=== PATIENT | female | born 1970 | race African-American/Black ===

== ENCOUNTER 2017-03-01 10:47 | Emergency (ER) | payer MEDICAID ==
[~2017-03-01] VITALS: Ht 152.4 cm; Wt 48.8 kg
[~2017-03-01 10:47] MED LIST: ASPI-1159 PO; IBUP-2029 PO; LISI-186 PO; METO25TA6 PO
[2017-03-01 12:39] LABS: CLARITY URINE CLEAR (CLEAR); COLOR URINE YELLOW (YELLOW); GLUCOSE URINE NEGATIVE (NEGATIVE); KETONES URINE NEGATIVE (NEGATIVE); LEUKOCYTE ESTERASE URINE 3+ (NEGATIVE); NITRITE URINE NEGATIVE (NEGATIVE); OCCULT BLOOD URINE TRACE (NEGATIVE); PROTEIN URINE TRACE (NEGATIVE); SPECIFIC GRAVITY URINE 1.021 (1.005-1.030); UROBILINOGEN URINE 0.2 E.U./dL (0.2-1.0)
[2017-03-01 13:28] LABS: HCG SCREEN NEGATIVE
[2017-03-01 14:40] VITALS: BP 138/72
== END 2017-03-01 14:42 | disposition home or self-care (01) ==
LOC: ER 10:47
DX: J06.9 Acute upper respiratory infection, unspecified (principal); N39.0 Urinary tract infection, site not specified; J45.909 Unspecified asthma, uncomplicated; I10 Essential (primary) hypertension; G43.909 Migraine, unspecified, not intractable, without status migrainosus; Z90.49 Acquired absence of other specified parts of digestive tract; Z88.6 Allergy status to analgesic agent
CPT/HCPCS: 71010; 81001; 84703; 99285

== ENCOUNTER 2017-03-06 11:03 | Emergency (ER) | payer MEDICAID ==
[~2017-03-06] VITALS: Ht 160 cm; Wt 54.0 kg
[2017-03-06] MEDS ORDERED: AMOXICILLIN/POTASSIUM CLAVULANATE 875/125MG TAB PO ONE (16:30)
[2017-03-06] MEDS ORDERED: IBUPROFEN 600MG TABLET PO ONE (16:30)
[2017-03-06] MEDS ORDERED: CLONIDINE 0.1MG TABLET PO ONE (17:15)
[2017-03-06 17:50] VITALS: BP 138/102
== END 2017-03-06 18:22 | disposition home or self-care (01) ==
LOC: ER 12:36
DX: J32.9 Chronic sinusitis, unspecified (principal); R51 Headache; I10 Essential (primary) hypertension; J45.909 Unspecified asthma, uncomplicated; R11.2 Nausea with vomiting, unspecified; Z79.82 Long term (current) use of aspirin
CPT/HCPCS: 81025; 99284

== ENCOUNTER 2017-04-11 02:52 | Emergency (ER) | payer MEDICAID ==
[~2017-04-11] VITALS: Ht 152.4 cm; Wt 55.0 kg
[2017-04-11 06:02] VITALS: BP 140/56
[2017-04-11] MEDS ORDERED: TOBRAMYCIN 0.3% OPHTH DROPS 5ML OP ONE (06:30)
== END 2017-04-11 07:09 | disposition home or self-care (01) ==
LOC: ER 02:52
DX: H10.9 Unspecified conjunctivitis (principal); Z88.5 Allergy status to narcotic agent; Z88.6 Allergy status to analgesic agent; Z79.82 Long term (current) use of aspirin
CPT/HCPCS: 99283

== ENCOUNTER 2017-09-09 10:38 | Emergency (ER) | payer MEDICAID ==
[~2017-09-09] VITALS: Ht 172.7 cm; Wt 60.0 kg
[2017-09-09 11:16] LABS: BASOPHILS % 0.8 % (0.0-2.0); EOSINOPHILS % 3.4 % (0.0-5.0); HEMATOCRIT. 29.5 % (36.0-48.0); HEMOGLOBIN. 8.8 g/dL (12.0-16.0); LYMPHOCYTES % 32.3 % (20.0-50.0); MEAN CORPUSCULAR HEMOGLOBIN 19.1 pg (28.0-32.0); MEAN CORPUSCULAR VOLUME 64.3 fL (81.0-99.0); MEAN PLATELET VOLUME 8.1 fl (7.4-10.4); MONOCYTES % 8.1 % (2.0-8.0); NEUTROPHILS % 55.4 % (40.0-76.0); PLATELET 228 x1000/uL (130-400); RED BLOOD CELL COUNT 4.58 mill/uL (4.2-5.4); RED CELL DISTRIBUTION WIDTH 19.1 % (11.6-14.6)
[2017-09-09 11:21] LABS: CHLORIDE 106 mEq/L (98-107)
[2017-09-09 11:22] LABS: INR 1.1; PROTHROMBIN TIME 11.1 sec (9.4-11.6)
[2017-09-09 11:25] LABS: ETHANOL BLOOD < 10 mg/dL
[2017-09-09 11:43] LABS: PLATELET ESTIMATE NORMAL
[2017-09-09 11:44] LABS: HCG SCREEN NEGATIVE
[2017-09-09] MEDS ORDERED: ONDANSETRON HCL 4MG/2ML VIAL IV STA (12:12)
[2017-09-09] MEDS ORDERED: MAGNESIUM/ALUMINUM HYDROXIDE/SIMETHICONE 30ML UDC PO STA (12:12)
[2017-09-09] MEDS ORDERED: SODIUM CHLORIDE 0.9% 1,000 ML IV ONE (12:12)
[2017-09-09] MEDS ORDERED: FAMOTIDINE 20MG/2ML VIAL IV STA (12:12)
[2017-09-09] MEDS ORDERED: MORPHINE SULFATE 4 MG/ML CPJ (NOT FOR IM USE) IV STA (12:12)
[2017-09-09] MEDS ORDERED: DIPHENHYDRAMINE 50MG/ML VIAL IV ONE (12:15)
[2017-09-09 12:32] LABS: CLARITY URINE CLEAR (CLEAR); COLOR URINE YELLOW (YELLOW); KETONES URINE NEGATIVE (NEGATIVE); LEUKOCYTE ESTERASE URINE 2+ (NEGATIVE); NITRITE URINE NEGATIVE (NEGATIVE); OCCULT BLOOD URINE 3+ (NEGATIVE); PH URINE 5.5 (4.5-8.0); PROTEIN URINE TRACE (NEGATIVE)
[2017-09-09 12:52] LABS: *AMPHETAMINES SCREEN URINE NEGATIVE (NEGATIVE); *BARBITURATES SCREEN URINE NEGATIVE (NEGATIVE); *COCAINE SCREEN URINE NEGATIVE (NEGATIVE); CANNABINOID URINE SCREEN NEGATIVE (NEGATIVE); PHENCYCLIDINE URINE SCREEN NEGATIVE (NEGATIVE)
[2017-09-09 12:53] LABS: *BENZODIAZEPINES SCREEN URINE NEGATIVE (NEGATIVE); METHADONE URINE SCREEN NEGATIVE (NEGATIVE); OPIATES URINE SCREEN NEGATIVE (NEGATIVE)
[2017-09-09] MEDS ORDERED: IBUPROFEN 600MG TABLET PO ONE (15:15)
[2017-09-09] MEDS ORDERED: LEVOFLOXACIN 500MG TABLET PO ONE (15:15)
[2017-09-09 15:34] VITALS: BP 170/82
== END 2017-09-09 15:36 | disposition home or self-care (01) ==
LOC: ER 11:13
DX: N39.0 Urinary tract infection, site not specified (principal); D64.9 Anemia, unspecified; I10 Essential (primary) hypertension; F41.9 Anxiety disorder, unspecified; G43.909 Migraine, unspecified, not intractable, without status migrainosus; Z79.82 Long term (current) use of aspirin; Z88.5 Allergy status to narcotic agent; Z88.6 Allergy status to analgesic agent
CPT/HCPCS: 36415; 74176; 80053; 80305; 81003; 83690; 84703; 85025; 85610; 87086; 96361; 96374; 96375; 99285; G0482; J1200; J2270; J2405; J3490; J7030; Z7610

== ENCOUNTER 2018-06-10 04:27 | Inpatient (IN) | payer MEDICAID ==
[~2018-06-10] VITALS: Ht 152.6 cm; Wt 55.8 kg
[2018-06-10] MEDS ORDERED: SODIUM CHLORIDE 0.9% 1,000 ML IV ONE (07:47)
[2018-06-10] MEDS ORDERED: DICYCLOMINE HCL 10MG CAPSULE PO ONE (08:00)
[2018-06-10] MEDS ORDERED: ONDANSETRON HCL 4MG/2ML INJ IV ONE (08:00)
[2018-06-10] MEDS ORDERED: KETOROLAC 15MG/ML VIAL IV ONE (08:00)
[2018-06-10 09:18] LABS: CLARITY URINE CLEAR (CLEAR); COLOR URINE YELLOW (YELLOW); KETONES URINE NEGATIVE (NEGATIVE); LEUKOCYTE ESTERASE URINE 1+ (NEGATIVE); NITRITE URINE NEGATIVE (NEGATIVE); OCCULT BLOOD URINE NEGATIVE (NEGATIVE); PH URINE 6.5 (4.5-8.0); PROTEIN URINE NEGATIVE (NEGATIVE); SPECIFIC GRAVITY URINE 1.011 (1.005-1.030)
[2018-06-10 09:19] LABS: INR 1.1; PROTHROMBIN TIME 10.8 sec (9.1-11.1)
[2018-06-10 09:26] LABS: HEMATOCRIT. 25.4 % (36.0-48.0); MEAN CORPUSCULAR HEMOGLOBIN 15.8 pg (28.0-32.0); MEAN CORPUSCULAR VOLUME 57.2 fL (81.0-99.0); MEAN PLATELET VOLUME 8.5 fl (7.4-10.4); PLATELET 127 x1000/uL (130-400); RED BLOOD CELL COUNT 4.44 mill/uL (4.2-5.4); RED CELL DISTRIBUTION WIDTH 19.7 % (11.6-14.6)
[2018-06-10 09:46] LABS: CHLORIDE 106 mEq/L (98-107)
[2018-06-10 10:21] LABS: PLATELET ESTIMATE NORMAL
[2018-06-10] MEDS ORDERED: ENOXAPARIN 40MG/0.4ML SYR SUBCUT SCH (13:15)
[2018-06-10] MEDS ORDERED: DIPHENHYDRAMINE 50MG/ML VIAL IV PRN (13:15)
[2018-06-10] MEDS ORDERED: ONDANSETRON HCL 4MG/2ML INJ IV PRN ×2 (13:15→19:00)
[2018-06-10] MEDS ORDERED: IPRATROPIUM/ALBUTEROL 0.5-3(2.5)MG/3ML NEB INH PRN (13:15)
[2018-06-10 15:12] LABS: *AMPHETAMINES SCREEN URINE NEGATIVE (NEGATIVE); *BARBITURATES SCREEN URINE NEGATIVE (NEGATIVE); *BENZODIAZEPINES SCREEN URINE NEGATIVE (NEGATIVE); *COCAINE SCREEN URINE NEGATIVE (NEGATIVE)
[2018-06-10 15:13] LABS: CANNABINOID URINE SCREEN NEGATIVE (NEGATIVE); METHADONE URINE SCREEN NEGATIVE (NEGATIVE); OPIATES URINE SCREEN NEGATIVE (NEGATIVE); PHENCYCLIDINE URINE SCREEN NEGATIVE (NEGATIVE)
[2018-06-10 15:48] LABS: HEPATITIS B SURFACE ANTIGEN NEGATIVE
[2018-06-10 16:00] VITALS: BP 159/82
[2018-06-10 16:16] VITALS: BP 159/82
[2018-06-10 16:17] LABS: HEPATITIS A AB IGM NEGATIVE (NEGATIVE)
[2018-06-10 16:26] VITALS: BP 159/82
[2018-06-10 18:03] LABS: TOTAL IRON BINDING CAPACITY 392 ug/dL (250-450)
[2018-06-10 18:26] LABS: FOLIC ACID (FOLATE) SERUM >20 ng/mL ng/mL (>5.38)
[2018-06-10 18:37] LABS: VITAMIN B12 SERUM 1026 pg/mL (211-911)
[2018-06-10 18:51] LABS: FERRITIN 10 ng/mL (10-291)
[2018-06-10] MEDS ORDERED: MORPHINE SULFATE 4 MG/ML CPJ (NOT FOR IM USE) IV PRN (19:00)
[2018-06-10 20:00] VITALS: BP 139/77
[2018-06-10] MEDS ORDERED: MAGNESIUM 2 G PREMIX 50 ML IV NR (20:00)
[2018-06-10] MEDS: LISINOPRIL 5MG TABLET PO SCH (20:42)
[2018-06-11] VITALS (13 sets, daily range): BP systolic 109–165; BP diastolic 63–95
[2018-06-11 01:31] LABS: HEMATOCRIT 22.4 % (36.0-48.0)
[2018-06-11 01:36] LABS: HEMOGLOBIN 6.3 g/dL (12.0-16.0)
[2018-06-11 01:40] LABS: INR 1.2; PARTIAL THROMBOPLASTIN TIME 30.1 sec (23.4-31.0)
[2018-06-11 02:01] LABS: CREATINE KINASE 47 IU/L (26-192)
[2018-06-11] MEDS: SODIUM CHLORIDE 0.9% 1,000 ML IV SCH ×3 (03:25→20:50)
[2018-06-11 05:29] LABS: BASOPHILS % 0.6 % (0.0-2.0); EOSINOPHILS % 2.3 % (0.0-5.0); LYMPHOCYTES % 44.4 % (20.0-50.0); MEAN CORPUSCULAR VOLUME 57.5 fL (81.0-99.0); MONOCYTES % 7.3 % (2.0-8.0); NEUTROPHILS % 45.4 % (40.0-76.0); RED BLOOD CELL COUNT 3.56 mill/uL (4.2-5.4); RED CELL DISTRIBUTION WIDTH 19.4 % (11.6-14.6)
[2018-06-11 05:33] LABS: CHLORIDE 110 mEq/L (98-107)
[2018-06-11 05:36] LABS: HEMOGLOBIN. 5.7 g/dL (12.0-16.0)
[2018-06-11 05:37] LABS: HEMATOCRIT. 20.5 % (36.0-48.0)
[2018-06-11 05:40] LABS: LDL CHOLESTEROL 37 mg/dL (5-100)
[2018-06-11 05:42] LABS: HDL CHOLESTEROL 30 mg/dL (40-59)
[2018-06-11 06:57] LABS: PLATELET 94 x1000/uL (130-400)
[2018-06-11] MEDS: LISINOPRIL 5MG TABLET PO SCH (08:59)
[2018-06-11] MEDS: METOPROLOL TARTRATE 25MG TABLET PO SCH ×2 (09:00→16:37)
[2018-06-11] MEDS: ASCORBIC ACID 500 MG TABLET PO SCH ×2 (09:00→20:48)
[2018-06-11] MEDS: FERROUS SULFATE 325MG TABLET PO SCH ×3 (09:00→16:37)
[2018-06-11] MEDS: DOCUSATE SODIUM 100MG CAPSULE PO SCH (10:30)
[2018-06-11 13:23] LABS: HEMATOCRIT 26.6 % (36.0-48.0); HEMOGLOBIN 7.6 g/dL (12.0-16.0)
[2018-06-11 13:36] LABS: INR 1.1; PROTHROMBIN TIME 11.4 sec (9.1-11.1)
[2018-06-11 15:25] LABS: HEMATOCRIT 25.3 % (36.0-48.0); HEMOGLOBIN 7.3 g/dL (12.0-16.0)
[2018-06-11] MEDS: CLONIDINE 0.1MG TABLET PO PRN (18:14)
[2018-06-12] VITALS (9 sets, daily range): BP systolic 102–182; BP diastolic 59–108
[2018-06-12 07:01] LABS: HEMATOCRIT 25.7 % (36.0-48.0); HEMOGLOBIN 7.4 g/dL (12.0-16.0)
[2018-06-12] MEDS: CLONIDINE 0.1MG TABLET PO PRN (07:03)
[2018-06-12] MEDS: DOCUSATE SODIUM 100MG CAPSULE PO SCH (08:16)
[2018-06-12] MEDS: AMLODIPINE 5MG TABLET PO SCH (08:16)
[2018-06-12] MEDS: FERROUS SULFATE 325MG TABLET PO SCH ×3 (08:16→17:03)
[2018-06-12] MEDS: METOPROLOL TARTRATE 25MG TABLET PO SCH ×2 (08:16→17:04)
[2018-06-12] MEDS: LISINOPRIL 5MG TABLET PO SCH (08:17)
[2018-06-12] MEDS: ASCORBIC ACID 500 MG TABLET PO SCH ×2 (08:17→21:13)
[2018-06-12] MEDS ORDERED: AMLODIPINE 5MG TABLET PO SCH (08:30)
[2018-06-12] MEDS ORDERED: HYDRALAZINE 20MG/ML VIAL IV NR (08:30)
[2018-06-12] MEDS ORDERED: POTASSIUM CHLORIDE 20MEQ TABLET SR PO NR (11:45)
[2018-06-12 13:06] LABS: HIV SCREEN 4G Non Reactive (Non Reactive)
[2018-06-12 13:19] LABS: CHLORIDE 108 mEq/L (98-107)
[2018-06-12 13:24] LABS: PHOSPHORUS 2.7 mg/dL (2.5-4.9)
[2018-06-13] VITALS (11 sets, daily range): BP systolic 106–153; BP diastolic 63–96
[2018-06-13 06:59] LABS: CHLORIDE 106 mEq/L (98-107)
[2018-06-13 07:03] LABS: BASOPHILS % 0.5 % (0.0-2.0); EOSINOPHILS % 1.4 % (0.0-5.0); HEMATOCRIT. 24.4 % (36.0-48.0); HEMOGLOBIN. 7.2 g/dL (12.0-16.0); LYMPHOCYTES % 42.1 % (20.0-50.0); MEAN CORPUSCULAR VOLUME 61.3 fL (81.0-99.0); MEAN PLATELET VOLUME 8.5 fl (7.4-10.4); PLATELET 93 x1000/uL (130-400); RED BLOOD CELL COUNT 3.99 mill/uL (4.2-5.4)
[2018-06-13 07:07] LABS: PHOSPHORUS 3.7 mg/dL (2.5-4.9)
[2018-06-13] MEDS: FERROUS SULFATE 325MG TABLET PO SCH ×3 (08:14→16:25)
[2018-06-13] MEDS: DOCUSATE SODIUM 100MG CAPSULE PO SCH (08:16)
[2018-06-13] MEDS: LISINOPRIL 5MG TABLET PO SCH (08:19)
[2018-06-13] MEDS: AMLODIPINE 5MG TABLET PO SCH (08:20)
[2018-06-13] MEDS: ASCORBIC ACID 500 MG TABLET PO SCH (08:21)
[2018-06-13] MEDS: METOPROLOL TARTRATE 25MG TABLET PO SCH ×2 (08:21→16:25)
[2018-06-13] MEDS ORDERED: FERR325T23 PO (15:37)
[2018-06-13] MEDS ORDERED: AMLO5TAB88 PO (15:37)
[2018-06-13] MEDS ORDERED: PANT40TA4 MT (15:37)
[2018-06-13] MEDS ORDERED: DOCU-138 PO (15:37)
[2018-06-13] MEDS ORDERED: ASCO500T20 PO (15:37)
[2018-06-13] MEDS ORDERED: METO25TA6 PO (15:37)
== END 2018-06-13 18:49 | disposition home or self-care (01) | DRG 249 ==
LOC: ER 04:42 → 6EST 12:21 → ENRESERV 14:05 → 3WST 06-11 11:00
PROVIDERS: ADMIT Internal Medicine; ATTEND Internal Medicine
PROC: 30233N1 Transfusion of Nonautologous Red Blood Cells into Peripheral Vein, Percutaneous Approach (ICD-10-PCS; principal; 2018-06-11)
DX: A08.4 Viral intestinal infection, unspecified (principal); K75.9 Inflammatory liver disease, unspecified; D25.9 Leiomyoma of uterus, unspecified; D50.9 Iron deficiency anemia, unspecified; F32.9 Major depressive disorder, single episode, unspecified; G43.909 Migraine, unspecified, not intractable, without status migrainosus; F41.9 Anxiety disorder, unspecified; I10 Essential (primary) hypertension; R10.9 Unspecified abdominal pain; J45.909 Unspecified asthma, uncomplicated; N92.0 Excessive and frequent menstruation with regular cycle; Z79.82 Long term (current) use of aspirin; Z82.49 Family history of ischemic heart disease and other diseases of the circulatory system; Z90.49 Acquired absence of other specified parts of digestive tract; Z88.6 Allergy status to analgesic agent; Z88.8 Allergy status to other drugs, medicaments and biological substances; D50.0 Iron deficiency anemia secondary to blood loss (chronic)
CPT/HCPCS: 36415; 76705; 76830; 76856; 80048; 80061; 80076; 80305; 82248; 82550; 82607; 82728; 82746; 83540; 83550; 83735; 84100; 84443; 85014; 85018; 85044; 85049; 85384; 86038; 86705; 86709; 86803; 86850; 86900; 86920; 87340; 87389; 93970; 96374; 96375; 99285; J0360; J1200; J1885; J2270; J2405; J3475; J7030; J7040; P9016

== ENCOUNTER 2018-08-19 13:14 | Inpatient (IN) | payer MEDICAID ==
[~2018-08-19] VITALS: Ht 139.7 cm; Wt 49.7 kg
[~2018-08-19 13:14] MED LIST changes: +AMLO5TAB88 PO; +ASCO500T20 PO; -ASPI-1159 PO; +DOCU-138 PO; +FERR325T23 PO; -IBUP-2029 PO; +PANT40TA4 MT
[2018-08-19] MEDS ORDERED: SODIUM CHLORIDE 0.9% 1,000 ML IV ONE (18:48)
[2018-08-19] MEDS ORDERED: MORPHINE SULFATE 4 MG/ML CPJ (NOT FOR IM USE) IV STA (18:48)
[2018-08-19] MEDS ORDERED: ONDANSETRON HCL 4MG/2ML INJ IV STA (18:48)
[2018-08-19 19:54] LABS: BASOPHILS % 1.5 % (0.0-2.0); EOSINOPHILS % 1.8 % (0.0-5.0); HEMATOCRIT. 23.7 % (36.0-48.0); LYMPHOCYTES % 42.3 % (20.0-50.0); MEAN CORPUSCULAR HEMOGLOBIN 18.2 pg (28.0-32.0); MEAN PLATELET VOLUME 8.5 fl (7.4-10.4); MONOCYTES % 7.5 % (2.0-8.0); NEUTROPHILS % 46.9 % (40.0-76.0); PLATELET 104 x1000/uL (130-400); RED BLOOD CELL COUNT 3.77 mill/uL (4.2-5.4); RED CELL DISTRIBUTION WIDTH 20.9 % (11.6-14.6)
[2018-08-19 19:56] LABS: HEMOGLOBIN. 6.9 g/dL (12.0-16.0)
[2018-08-19 19:59] LABS: CHLORIDE 106 mEq/L (98-107); HCG SCREEN NEGATIVE
[2018-08-19 20:03] LABS: PARTIAL THROMBOPLASTIN TIME 28.7 sec (23.4-31.0); PROTHROMBIN TIME 10.4 sec (9.6-11.0)
[2018-08-19 20:04] LABS: ETHANOL BLOOD < 10 mg/dL
[2018-08-19 20:08] LABS: PLATELET ESTIMATE DECREASED
[2018-08-19 20:44] LABS: CLARITY URINE CLEAR (CLEAR); COLOR URINE YELLOW (YELLOW); KETONES URINE NEGATIVE (NEGATIVE); LEUKOCYTE ESTERASE URINE NEGATIVE (NEGATIVE); NITRITE URINE NEGATIVE (NEGATIVE); OCCULT BLOOD URINE 3+ (NEGATIVE); PH URINE 6.5 (4.5-8.0); PROTEIN URINE NEGATIVE (NEGATIVE); SPECIFIC GRAVITY URINE 1.019 (1.005-1.030); UROBILINOGEN URINE 0.2 E.U./dL (0.2-1.0)
[2018-08-19 20:52] LABS: *AMPHETAMINES SCREEN URINE NEGATIVE (NEGATIVE); *BARBITURATES SCREEN URINE NEGATIVE (NEGATIVE); *BENZODIAZEPINES SCREEN URINE NEGATIVE (NEGATIVE)
[2018-08-19 20:53] LABS: *COCAINE SCREEN URINE NEGATIVE (NEGATIVE); CANNABINOID URINE SCREEN NEGATIVE (NEGATIVE); METHADONE URINE SCREEN NEGATIVE (NEGATIVE); OPIATES URINE SCREEN NEGATIVE (NEGATIVE); PHENCYCLIDINE URINE SCREEN NEGATIVE (NEGATIVE)
[2018-08-19] MEDS ORDERED: HYDROMORPHONE HCL/PF 2MG/ML CPJ IV PRN (22:15)
[2018-08-19] MEDS ORDERED: GUAIFENESIN 200MG/10ML SUGAR FREE UDC PO PRN (22:15)
[2018-08-19] MEDS ORDERED: ONDANSETRON HCL 4MG/2ML INJ IV PRN (22:15)
[2018-08-19] MEDS ORDERED: MAGNESIUM/ALUMINUM HYDROXIDE/SIMETHICONE 30ML UDC PO PRN (22:15)
[2018-08-19] MEDS ORDERED: KETOROLAC 30MG/ML VIAL IV PRN (22:15)
[2018-08-19] MEDS ORDERED: ACETAMINOPHEN 325MG TABLET PO PRN (22:15)
[2018-08-19] MEDS ORDERED: CLONIDINE 0.1MG TABLET PO PRN (22:15)
[2018-08-19] MEDS ORDERED: DIPHENHYDRAMINE 50MG/ML VIAL IV PRN (22:15)
[2018-08-19] MEDS ORDERED: TEMAZEPAM 15MG CAPSULE PO PRN (22:15)
[2018-08-19] MEDS ORDERED: IPRATROPIUM/ALBUTEROL 0.5-3(2.5)MG/3ML NEB INH PRN (22:15)
[2018-08-19 23:40] VITALS: BP 141/78
[2018-08-20] VITALS (9 sets, daily range): BP systolic 95–147; BP diastolic 53–83
[2018-08-20] MEDS: SODIUM CHLORIDE 0.9% 1,000 ML IV SCH ×2 (06:02→22:37)
[2018-08-20 07:15] LABS: HEMATOCRIT 21.8 % (36.0-48.0); MEAN CORPUSCULAR HEMOGLOBIN 18.2 pg (28.0-32.0); MEAN CORPUSCULAR VOLUME 62.7 fL (81.0-99.0); PLATELET 89 x1000/uL (130-400); RED BLOOD CELL COUNT 3.48 mill/uL (4.2-5.4)
[2018-08-20 07:26] LABS: HEMOGLOBIN 6.3 g/dL (12.0-16.0)
[2018-08-20] MEDS: FERROUS SULFATE 325MG TABLET PO SCH ×3 (08:33→17:15)
[2018-08-20] MEDS: LISINOPRIL 5MG TABLET PO SCH (08:37)
[2018-08-20] MEDS: METOPROLOL TARTRATE 25MG TABLET PO SCH ×2 (08:37→21:13)
[2018-08-20] MEDS: IRON SUCROSE COMPLEX 100 MG/5 ML ML IV SCH (13:05)
[2018-08-20] MEDS ORDERED: FAMOTIDINE 20MG TABLET PO SCH (21:00)
[2018-08-21] VITALS: BP 151/84
[2018-08-21 04:00] VITALS: BP 159/81
[2018-08-21 06:36] LABS: BASOPHILS % 0.7 % (0.0-2.0); EOSINOPHILS % 1.3 % (0.0-5.0); HEMATOCRIT. 26.2 % (36.0-48.0); HEMOGLOBIN. 7.9 g/dL (12.0-16.0); LYMPHOCYTES % 22.5 % (20.0-50.0); MEAN CORPUSCULAR HEMOGLOBIN 20.1 pg (28.0-32.0); MEAN CORPUSCULAR VOLUME 66.4 fL (81.0-99.0); MEAN PLATELET VOLUME 8.6 fl (7.4-10.4); MONOCYTES % 6.1 % (2.0-8.0); NEUTROPHILS % 69.4 % (40.0-76.0); PLATELET 82 x1000/uL (130-400); RED BLOOD CELL COUNT 3.95 mill/uL (4.2-5.4); RED CELL DISTRIBUTION WIDTH 26.1 % (11.6-14.6)
[2018-08-21 08:00] VITALS: BP 135/82
[2018-08-21] MEDS: FERROUS SULFATE 325MG TABLET PO SCH ×3 (09:53→17:32)
[2018-08-21] MEDS: IRON SUCROSE COMPLEX 100 MG/5 ML ML IV SCH (09:53)
[2018-08-21] MEDS: METOPROLOL TARTRATE 25MG TABLET PO SCH (09:54)
[2018-08-21] MEDS: LISINOPRIL 5MG TABLET PO SCH (09:54)
[2018-08-21 12:00] VITALS: BP 135/87
[2018-08-21] MEDS ORDERED: IBUPROFEN 400MG TABLET PO PRN (13:45)
[2018-08-21 13:47] LABS: PLATELET ESTIMATE DECREASED
[2018-08-21 16:00] VITALS: BP 141/88
[2018-08-21 18:22] VITALS: BP 141/88
== END 2018-08-21 18:43 | disposition home or self-care (01) | DRG 54 ==
LOC: ER 13:14 → 5WST 20:19 → ENRESERV 22:47
PROVIDERS: ADMIT Internal Medicine; ATTEND Internal Medicine
PROC: 30233N1 Transfusion of Nonautologous Red Blood Cells into Peripheral Vein, Percutaneous Approach (ICD-10-PCS; principal; 2018-08-20)
DX: G43.909 Migraine, unspecified, not intractable, without status migrainosus (principal); D69.6 Thrombocytopenia, unspecified; D50.9 Iron deficiency anemia, unspecified; D25.9 Leiomyoma of uterus, unspecified; F41.9 Anxiety disorder, unspecified; I10 Essential (primary) hypertension; F32.9 Major depressive disorder, single episode, unspecified; J45.909 Unspecified asthma, uncomplicated; Z88.6 Allergy status to analgesic agent; Z88.8 Allergy status to other drugs, medicaments and biological substances; Z82.49 Family history of ischemic heart disease and other diseases of the circulatory system; Z90.49 Acquired absence of other specified parts of digestive tract; Z83.3 Family history of diabetes mellitus; Z79.899 Other long term (current) drug therapy
CPT/HCPCS: 36415; 71045; 80305; 80320; 83880; 84484; 84703; 85027; 86850; 86860; 86870; 86880; 86900; 86905; 86906; 86920; 86970; 86971; 93005; 96374; 96375; 99285; J2270; J2405; J7030; J7040; P9016; G0480

== ENCOUNTER 2020-11-09 15:06 | Inpatient (IN) | payer MEDICAID ==
[~2020-11-09] VITALS: Ht 154.9 cm; Wt 54.9 kg
[~2020-11-09 15:06] MED LIST changes: -PANT40TA4 MT; +PANT40TA51 MT
[2020-11-09] MEDS ORDERED: SODIUM CHLORIDE 0.9% 1,000 ML IV ONE (19:15)
[2020-11-09] MEDS ORDERED: ONDANSETRON HCL 4MG/2ML INJ IV ONE (19:15)
[2020-11-09 20:28] LABS: CHLORIDE 110 mEq/L (98-107)
[2020-11-09 20:31] LABS: BASOPHILS % 0.7 % (0.0-2.0); EOSINOPHILS % 1.7 % (0.0-5.0); LYMPHOCYTES % 24.9 % (20.0-50.0); MEAN CORPUSCULAR HEMOGLOBIN 16.7 pg (28.0-32.0); MEAN CORPUSCULAR VOLUME 55.8 fL (81.0-99.0); MONOCYTES % 6.3 % (2.0-8.0); NEUTROPHILS % 66.4 % (40.0-76.0); RED BLOOD CELL COUNT 4.06 mill/uL (4.2-5.4); RED CELL DISTRIBUTION WIDTH 20.7 % (11.6-14.6)
[2020-11-09 20:37] LABS: HEMATOCRIT. 22.7 % (36.0-48.0); HEMOGLOBIN. 6.8 g/dL (12.0-16.0)
[2020-11-09 20:51] LABS: HCG SCREEN NEGATIVE
[2020-11-09 21:58] LABS: CLARITY URINE CLEAR (CLEAR); COLOR URINE YELLOW (YELLOW); KETONES URINE TRACE (NEGATIVE); LEUKOCYTE ESTERASE URINE 1+ (NEGATIVE); NITRITE URINE NEGATIVE (NEGATIVE); OCCULT BLOOD URINE 2+ (NEGATIVE); PH URINE 5.5 (4.5-8.0); PROTEIN URINE NEGATIVE (NEGATIVE); SPECIFIC GRAVITY URINE 1.021 (1.005-1.030); UROBILINOGEN URINE 0.2 E.U./dL (0.2-1.0)
[2020-11-09 22:31] LABS: PLATELET ESTIMATE DECREASED
[2020-11-09 22:34] LABS: MEAN PLATELET VOLUME 8.9 fl (7.4-10.4); PLATELET 105 x1000/uL (130-400)
[2020-11-09] MEDS ORDERED: IOHEXOL-300 100 ML BOTTLE ONE (23:19)
[2020-11-09] MEDS ORDERED: LEVOFLOXACIN 750MG PREMIX 150 ML IV ONE (23:30)
[2020-11-10] VITALS (14 sets, daily range): BP systolic 105–128; BP diastolic 55–72
[2020-11-10] MEDS ORDERED: ESCI20TA37 PO (02:00)
[2020-11-10] MEDS ORDERED: ASPI-1497 PO (02:00)
[2020-11-10] MEDS ORDERED: METO-396 PO (02:00)
[2020-11-10] MEDS ORDERED: CLON1TAB23 PO (02:00)
[2020-11-10] MEDS ORDERED: ESCI-7 PO (02:00)
[2020-11-10] MEDS ORDERED: LISI10TA26 PO (02:00)
[2020-11-10] MEDS ORDERED: *PATIENT'S OWN MEDICATION STORAGE XX SCH (02:45)
[2020-11-10] MEDS ORDERED: MORPHINE SULFATE 2 MG/ML CPJ (NOT FOR IM USE) IV PRN (03:45)
[2020-11-10] MEDS ORDERED: ONDANSETRON HCL 4MG/2ML INJ IV PRN (03:45)
[2020-11-10] MEDS: METRONIDAZOLE 500MG TABLET PO SCH ×3 (06:31→22:32)
[2020-11-10] MEDS: AMLODIPINE 5MG TABLET PO SCH (09:07)
[2020-11-10] MEDS ORDERED: DOCU-138 MT (11:42)
[2020-11-10] MEDS ORDERED: FERR325T23 MT (11:42)
[2020-11-10 12:15] LABS: HEMATOCRIT 19.9 % (36.0-48.0); HEMOGLOBIN 5.9 g/dL (12.0-16.0)
[2020-11-10] MEDS: FERROUS SULFATE 325MG TABLET PO SCH ×2 (12:32→16:32)
[2020-11-10] MEDS: DOCUSATE SODIUM 100MG CAPSULE PO SCH (16:31)
[2020-11-10] MEDS ORDERED: LEVOFLOXACIN 500MG PREMIX 100 ML IV SCH (23:00)
[2020-11-11] VITALS: BP 137/75
[2020-11-11 04:00] VITALS: BP 127/73
[2020-11-11] MEDS: METRONIDAZOLE 500MG TABLET PO SCH ×2 (06:00→06:21)
[2020-11-11] MEDS: FERROUS SULFATE 325MG TABLET PO SCH ×2 (06:21→06:26)
[2020-11-11 07:47] LABS: INR 1.1; PROTHROMBIN TIME 11.6 sec (9.6-11.0)
[2020-11-11 07:56] LABS: BASOPHILS % 0.7 % (0.0-2.0); EOSINOPHILS % 1.5 % (0.0-5.0); HEMATOCRIT. 24.6 % (36.0-48.0); HEMOGLOBIN. 7.4 g/dL (12.0-16.0); LYMPHOCYTES % 12.5 % (20.0-50.0); MEAN CORPUSCULAR HEMOGLOBIN 18.6 pg (28.0-32.0); MEAN CORPUSCULAR VOLUME 61.6 fL (81.0-99.0); MEAN PLATELET VOLUME 8.6 fl (7.4-10.4); NEUTROPHILS % 78.3 % (40.0-76.0); PLATELET 108 x1000/uL (130-400); RED BLOOD CELL COUNT 3.99 mill/uL (4.2-5.4); RED CELL DISTRIBUTION WIDTH 25.1 % (11.6-14.6)
[2020-11-11 08:00] VITALS: BP 129/75
[2020-11-11 08:06] LABS: CHLORIDE 110 mEq/L (98-107)
[2020-11-11 08:18] LABS: TOTAL IRON BINDING CAPACITY 438 ug/dL (250-450)
[2020-11-11 08:21] LABS: FOLIC ACID (FOLATE) SERUM 12.4 ng/mL (>5.38)
[2020-11-11] MEDS: DOCUSATE SODIUM 100MG CAPSULE PO SCH (10:14)
[2020-11-11] MEDS: AMLODIPINE 5MG TABLET PO SCH (10:14)
[2020-11-11] MEDS ORDERED: POTASSIUM CHLORIDE 20MEQ TABLET SR PO SCH (10:15)
[2020-11-11 11:07] VITALS: BP 121/70
[2020-11-11] MEDS ORDERED: IRON SUCROSE COMPLEX 100 MG/5 ML ML IV SCH (13:00)
== END 2020-11-11 12:30 | disposition home or self-care (01) | DRG 249 ==
LOC: ER 15:06 → 5WST 23:19 → MERGE 23:19 → ENRESERV 23:37
PROVIDERS: ADMIT Internal Medicine; ATTEND Internal Medicine
DX: K52.9 Noninfective gastroenteritis and colitis, unspecified (principal); E87.8 Other disorders of electrolyte and fluid balance, not elsewhere classified; F41.9 Anxiety disorder, unspecified; D25.9 Leiomyoma of uterus, unspecified; D50.9 Iron deficiency anemia, unspecified; F32.9 Major depressive disorder, single episode, unspecified; G43.909 Migraine, unspecified, not intractable, without status migrainosus; Z60.2 Problems related to living alone; I10 Essential (primary) hypertension; Z90.49 Acquired absence of other specified parts of digestive tract; Z88.8 Allergy status to other drugs, medicaments and biological substances; Z88.5 Allergy status to narcotic agent; Z79.899 Other long term (current) drug therapy; Z79.82 Long term (current) use of aspirin
CPT/HCPCS: 36415; 74177; 76830; 76856; 80048; 80076; 81003; 82607; 82728; 82746; 83540; 83550; 84703; 85014; 85018; 85025; 85384; 86850; 86870; 86900; 86920; 99285; J1956; J2405; J7030; J7040; P9016; Q9967

== ENCOUNTER 2021-10-18 11:30 | Emergency (ER) | payer MEDICAID ==
[~2021-10-18] VITALS: Ht 154.9 cm; Wt 56.0 kg
[~2021-10-18 11:30] MED LIST changes: +CLON1TAB23 PO; +DOCU-138 MT; +ESCI-7 PO; +ESCI20TA37 PO; +FERR325T23 MT; +LISI10TA26 PO; +METO-396 PO
[2021-10-18 11:46] VITALS: BP 177/71
[2021-10-18 12:41] LABS: BASOPHILS % 0.8 % (0.0-2.0); EOSINOPHILS % 3.7 % (0.0-5.0); HEMATOCRIT. 26.9 % (36.0-48.0); HEMOGLOBIN. 7.7 g/dL (12.0-16.0); LYMPHOCYTES % 20.4 % (20.0-50.0); MEAN CORPUSCULAR HEMOGLOBIN 17.2 pg (28.0-32.0); MEAN CORPUSCULAR VOLUME 60.3 fL (81.0-99.0); MEAN PLATELET VOLUME 8.3 fl (7.4-10.4); MONOCYTES % 6.4 % (2.0-8.0); NEUTROPHILS % 68.7 % (40.0-76.0); PLATELET 197 x1000/uL (130-400); RED BLOOD CELL COUNT 4.47 mill/uL (4.2-5.4); RED CELL DISTRIBUTION WIDTH 19.6 % (11.6-14.6)
[2021-10-18 12:43] LABS: CHLORIDE 110 mEq/L (98-107)
[2021-10-18 13:03] LABS: PLATELET ESTIMATE NORMAL
[2021-10-18 17:19] LABS: CLARITY URINE CLEAR (CLEAR); COLOR URINE YELLOW (YELLOW); KETONES URINE NEGATIVE (NEGATIVE); LEUKOCYTE ESTERASE URINE TRACE (NEGATIVE); NITRITE URINE NEGATIVE (NEGATIVE); OCCULT BLOOD URINE 3+ (NEGATIVE); PROTEIN URINE 1+ (NEGATIVE); SPECIFIC GRAVITY URINE 1.022 (1.005-1.030)
== END 2021-10-18 17:46 | disposition home or self-care (01) ==
LOC: ER 11:30
DX: I10 Essential (primary) hypertension (principal); D64.9 Anemia, unspecified; F41.9 Anxiety disorder, unspecified; Z90.49 Acquired absence of other specified parts of digestive tract; Z79.899 Other long term (current) drug therapy
CPT/HCPCS: 36415; 71045; 80053; 81003; 85025; 86850; 86870; 86900; 93005; 99285

== ENCOUNTER 2022-01-31 14:53 | Inpatient (IN) | payer MEDICAID, OTHER ==
[~2022-01-31] VITALS: Ht 160 cm; Wt 59.0 kg
[2022-01-31] VITALS: BP 142/76
[2022-01-31] MEDS ORDERED: SODIUM CHLORIDE 0.9% 1,000 ML IV ONE (16:00)
[2022-01-31 16:36] LABS: CHLORIDE 109 mEq/L (98-107)
[2022-01-31 16:46] LABS: B-HCG QUANTITATIVE < 1 mIU/mL (<3); HCG SCREEN NEGATIVE
[2022-01-31 17:56] LABS: BASOPHILS % 0.9 % (0.0-2.0); EOSINOPHILS % 2.4 % (0.0-5.0); LYMPHOCYTES % 29.4 % (20.0-50.0); MEAN CORPUSCULAR HEMOGLOBIN 17.9 pg (28.0-32.0); MEAN CORPUSCULAR VOLUME 60.6 fL (81.0-99.0); MEAN PLATELET VOLUME 8.3 fl (7.4-10.4); MONOCYTES % 7.7 % (2.0-8.0); NEUTROPHILS % 59.6 % (40.0-76.0); PLATELET 225 x1000/uL (130-400); RED BLOOD CELL COUNT 2.52 mill/uL (4.2-5.4); RED CELL DISTRIBUTION WIDTH 19.7 % (11.6-14.6)
[2022-01-31 17:58] LABS: HEMATOCRIT. 15.3 % (36.0-48.0); HEMOGLOBIN. 4.5 g/dL (12.0-16.0)
[2022-01-31 18:46] LABS: PLATELET ESTIMATE NORMAL
[2022-01-31 22:15] VITALS: BP 153/65
[2022-02-01] VITALS (15 sets, daily range): BP systolic 124–165; BP diastolic 70–95
[2022-02-01] MEDS ORDERED: ONDANSETRON HCL 4MG/2ML INJ IV PRN (01:00)
[2022-02-01] MEDS ORDERED: MORPHINE SULFATE 2 MG/ML CPJ (NOT FOR IM USE) IV PRN (01:00)
[2022-02-01] MEDS ORDERED: NALOXONE HCL 0.4MG/ML VIAL IV PRN (01:15)
[2022-02-01] MEDS: LACTATED RINGERS 1,000 ML IV SCH ×2 (01:50→16:39)
[2022-02-01 08:28] LABS: BASOPHILS % 0.9 % (0.0-2.0); EOSINOPHILS % 4.9 % (0.0-5.0); LYMPHOCYTES % 36.1 % (20.0-50.0); MEAN CORPUSCULAR HEMOGLOBIN 18.1 pg (28.0-32.0); MEAN CORPUSCULAR VOLUME 61.8 fL (81.0-99.0); MEAN PLATELET VOLUME 8.5 fl (7.4-10.4); MONOCYTES % 8.8 % (2.0-8.0); NEUTROPHILS % 49.3 % (40.0-76.0); PLATELET 171 x1000/uL (130-400); RED BLOOD CELL COUNT 2.24 mill/uL (4.2-5.4); RED CELL DISTRIBUTION WIDTH 19.9 % (11.6-14.6)
[2022-02-01 08:36] LABS: HEMATOCRIT. 13.9 % (36.0-48.0)
[2022-02-01] MEDS: PANTOPRAZOLE SODIUM 40 MG/VIAL IV SCH (08:41)
[2022-02-01] MEDS: LISINOPRIL 10MG TABLET PO SCH (16:39)
[2022-02-01 22:20] LABS: HEMATOCRIT 31.9 % (36.0-48.0); HEMOGLOBIN 10.3 g/dL (12.0-16.0)
[2022-02-01 22:55] LABS: PROTHROMBIN TIME 11.2 sec (9.6-11.0)
[2022-02-02] VITALS: BP 139/78
[2022-02-02 03:37] VITALS: BP 140/82
[2022-02-02] MEDS: LACTATED RINGERS 1,000 ML IV SCH ×2 (03:50→16:31)
[2022-02-02 08:00] VITALS: BP 134/82
[2022-02-02 08:05] LABS: BASOPHILS % 0.4 % (0.0-2.0); EOSINOPHILS % 2.3 % (0.0-5.0); HEMATOCRIT. 27.4 % (36.0-48.0); LYMPHOCYTES % 16.8 % (20.0-50.0); MEAN CORPUSCULAR HEMOGLOBIN 23.7 pg (28.0-32.0); MEAN CORPUSCULAR VOLUME 72.7 fL (81.0-99.0); MEAN PLATELET VOLUME 8.2 fl (7.4-10.4); MONOCYTES % 9.2 % (2.0-8.0); NEUTROPHILS % 71.3 % (40.0-76.0); PLATELET 119 x1000/uL (130-400); RED BLOOD CELL COUNT 3.77 mill/uL (4.2-5.4); RED CELL DISTRIBUTION WIDTH 24.3 % (11.6-14.6)
[2022-02-02 08:25] LABS: CHLORIDE 108 mEq/L (98-107)
[2022-02-02] MEDS: PANTOPRAZOLE SODIUM 40 MG/VIAL IV SCH (09:11)
[2022-02-02] MEDS: LISINOPRIL 10MG TABLET PO SCH ×2 (09:11→16:30)
[2022-02-02 12:00] VITALS: BP 130/78
[2022-02-02 16:00] VITALS: BP 140/71
[2022-02-02 17:00] VITALS: BP 140/71
[2022-02-03] MEDS ORDERED: FAMOTIDINE 20MG/2ML VIAL IV SCH (09:00)
== END 2022-02-02 19:30 | disposition home or self-care (01) | DRG 532 ==
LOC: ER 14:53 → 6WST 18:51 → EDBEDREQ 19:02 → EDBEDREQSVC 19:02 → ENRESERV 19:56 → EDBEDREQTM 20:17 → EDBEDREQSVC 20:17 → ENRESERV 20:52
PROVIDERS: ADMIT Internal Medicine; ATTEND Internal Medicine
PROC: 30233N1 Transfusion of Nonautologous Red Blood Cells into Peripheral Vein, Percutaneous Approach (ICD-10-PCS; principal; 2022-02-01)
DX: N92.0 Excessive and frequent menstruation with regular cycle (principal); D62 Acute posthemorrhagic anemia; D25.9 Leiomyoma of uterus, unspecified; R53.1 Weakness; I10 Essential (primary) hypertension; F41.8 Other specified anxiety disorders; Z79.899 Other long term (current) drug therapy; Z88.8 Allergy status to other drugs, medicaments and biological substances; Z90.49 Acquired absence of other specified parts of digestive tract; Z82.49 Family history of ischemic heart disease and other diseases of the circulatory system; Z80.9 Family history of malignant neoplasm, unspecified
CPT/HCPCS: 36415; 71045; 76830; 76856; 80048; 80053; 83880; 84484; 84702; 84703; 85014; 85018; 85025; 85049; 85384; 86850; 86870; 86900; 86920; 93005; 99285; C9113; J2270; J7030; J7120; P9016

== ENCOUNTER 2022-06-04 11:33 | Emergency (ER) | payer MEDICAID, OTHER ==
[~2022-06-04] VITALS: Ht 162.6 cm; Wt 67.0 kg
[2022-06-04 12:30] VITALS: BP 168/81
[2022-06-04] MEDS ORDERED: AMOXICILLIN 500 MG CAPSULE PO ONE (14:30)
[2022-06-04] MEDS ORDERED: IBUPROFEN 600MG TABLET PO ONE (14:30)
[2022-06-04] MEDS ORDERED: AMOX-494 MT (14:43)
[2022-06-04] MEDS ORDERED: IBUP-2029 MT (14:44)
== END 2022-06-04 15:01 | disposition home or self-care (01) ==
LOC: ER 11:33
DX: H61.21 Impacted cerumen, right ear (principal); H92.02 Otalgia, left ear; I10 Essential (primary) hypertension; F41.9 Anxiety disorder, unspecified; Z90.49 Acquired absence of other specified parts of digestive tract; Z79.01 Long term (current) use of anticoagulants; Z88.6 Allergy status to analgesic agent
CPT/HCPCS: 99283

== ENCOUNTER 2023-01-29 18:31 | Emergency (ER) | payer OTHER ==
[~2023-01-29] VITALS: Ht 154.9 cm; Wt 52.0 kg
[~2023-01-29 18:31] MED LIST changes: +AMOX-494 MT; +IBUP-2029 MT
[2023-01-29 18:47] VITALS: BP 134/74; PULSE 70; RESP 16; TEMP 99.2; O2SAT 100
== END 2023-01-29 19:21 | disposition left against medical advice (07) ==
LOC: ER 18:31
DX: Z53.21 Procedure and treatment not carried out due to patient leaving prior to being seen by health care provider (principal)
CPT/HCPCS: 99281

== ENCOUNTER 2024-05-28 15:41 | Emergency (ER) | payer OTHER ==
[~2024-05-28] VITALS: Ht 162.6 cm; Wt 70.0 kg
[2024-05-28 15:48] VITALS: O2SAT 98
[2024-05-28] MEDS: LABETALOL 5MG/ML 4ML INJ IV ONE (16:00)
[2024-05-28] MEDS: METOCLOPRAMIDE HCL 10MG/2ML VIAL IV ONE (16:00)
[2024-05-28 16:25] LABS: BASOPHILS % 0.5 % (0.0-2.0); DIFFERENTIAL COMMENT 0; EOSINOPHILS % 2.1 % (0.0-5.0); HEMATOCRIT. 39.6 % (36.0-48.0); HEMOGLOBIN. 12.8 g/dL (12.0-16.0); LYMPHOCYTES % 15.5 % (20.0-50.0); MEAN CORPUSCULAR HEMOGLOBIN 25.9 pg (28.0-32.0); MEAN CORPUSCULAR HGB CONC 32.4 g/dL (31.0-37.0); MEAN CORPUSCULAR VOLUME 79.9 fL (81.0-99.0); MEAN PLATELET VOLUME 8.2 fl (7.4-10.4); NEUTROPHILS % 75.9 % (40.0-76.0); PLATELET 179 x1000/uL (130-400); RED BLOOD CELL COUNT 4.96 mill/uL (4.2-5.4); RED CELL DISTRIBUTION WIDTH 18.1 % (11.6-14.6); WHITE BLOOD COUNT 5.3 x1000/uL (4.5-11.0)
[2024-05-28 16:29] LABS: CHLORIDE 107 mEq/L (98-107); POTASSIUM 3.8 mEq/L (3.5-5.1); SODIUM 143 mEq/L (136-145)
[2024-05-28 16:30] LABS: CARBON DIOXIDE 30 mEq/L (21-32)
[2024-05-28 16:31] LABS: CALCIUM 9.4 mg/dL (8.7-10.4)
[2024-05-28 16:34] LABS: PARTIAL THROMBOPLASTIN TIME 29.7 sec (23.4-31.0); PROTHROMBIN TIME 10.9 sec (9.6-11.0)
[2024-05-28 16:35] LABS: CREATININE 0.8 mg/dL (0.6-1.0); GLUCOSE 69 mg/dL (70-105)
[2024-05-28 16:36] LABS: TROPONIN I HIGH SENSITIVITY 6 ng/L (3.0-34); UREA NITROGEN BLOOD 14 mg/dL (9-23)
[2024-05-28 16:37] LABS: ALANINE AMINOTRANSFERASE 13 IU/L (10-49); ALBUMIN 4.6 g/dL (3.2-4.8); ASPARTATE AMINOTRANSFERASE 21 IU/L (<34); BILIRUBIN DIRECT 0.3 mg/dL (<=3.0)
[2024-05-28 16:38] LABS: BILIRUBIN TOTAL 0.9 mg/dL (0.1-1.0); PROTEIN TOTAL 8.5 g/dL (6.0-8.3)
[2024-05-28] MEDS: MAGNESIUM 2 G PREMIX 50 ML IV ONE (17:28)
[2024-05-28 22:48] VITALS: BP 130/73; PULSE 87; RESP 16; TEMP 36.66960; O2SAT 100
== END 2024-05-28 23:30 | disposition short-term general hospital (02) ==
LOC: ER 15:41 → EDBEDREQ 15:54 → ER 23:30
DX: R55 Syncope and collapse (principal); I10 Essential (primary) hypertension; F41.9 Anxiety disorder, unspecified; Z88.5 Allergy status to narcotic agent; Z88.6 Allergy status to analgesic agent; Z90.49 Acquired absence of other specified parts of digestive tract; Z79.899 Other long term (current) drug therapy
CPT/HCPCS: 99291; 96365; 70450; 96375; 80076; 80048; 83880; 83735; 85025; 85610; 85730; 84484; 36415; 71045; 93005; J3490; J3475; J2765